=== PATIENT | female | born 1995 | race Caucasian/White ===

== ENCOUNTER 2018-02-18 15:52 | Emergency (ER) | payer OTHER ==
[~2018-02-18] VITALS: Ht 157.5 cm; Wt 47.2 kg
[2018-02-18 15:55] VITALS: Ht 157.5 cm; Wt 47.2 kg
[2018-02-18 16:49] LABS: AMPHETAMINE QUAL UR NONE DETECTED (NEG <=1000)
[2018-02-18 17:02] LABS: BASOPHIL % 0.3 % (0-2); PLATELET COUNT 229 x10^3mcL (130-400)
[2018-02-18 17:09] LABS: CALCIUM 9.7 mg/dL (8.5-10.1); CARBON DIOXIDE 27.9 mmol/L (21-32); CHLORIDE SERUM 104 mmol/L (98-107); CREATININE SERUM 0.7 mg/dL (0.6-1.0); GFR1 > 60 mL/min; GLUCOSE SERUM 114 mg/dL (74-106); POTASSIUM SERUM 4.1 mmol/L (3.5-5.1); SODIUM SERUM 140 mmol/L (136-145)
[2018-02-18 17:17] LABS: ALBUMIN 4.3 g/dL (3.4-5.0); ALKALINE PHOSPHATASE 95 U/L (46-116); ALT/SGPT 19 U/L (14-59); AST/SGOT 23 U/L (15-37); BILIRUBIN TOTAL 0.58 mg/dL (0.20-1.00)
[2018-02-18 17:20] LABS: TOTAL PROTEIN, SERUM 8.8 g/dL (6.4-8.2)
[2018-02-18 17:23] LABS: T3 TOTAL 1.23 ng/mL
[2018-02-18 17:48] LABS: FREE T4 1.21 ng/dL (0.76-1.46); FREE THYROXINE INDEX 3.9 ug/dL (1.4-4.5); T4(THYROXINE) 11.9 ug/dL (4.7-13.3)
[2018-02-18 18:45] VITALS: BP 119/72
== END 2018-02-18 18:45 | disposition home or self-care (01) ==
LOC: ED 15:52
PROVIDERS: Emergency Medicine
DX: F43.20 Adjustment disorder, unspecified (principal)
CPT/HCPCS: 36415; 84439